=== PATIENT | male | born 1985 | race Caucasian/White ===

== ENCOUNTER 2017-03-08 18:26 | Emergency (ER) | payer SELFPAY ==
[~2017-03-08] VITALS: Ht 165.1 cm; Wt 68.0 kg
[~2017-03-08 18:26] MED LIST: ADDERALL 30 MG30 MG PO; AMOXICILLIN500 M2 PO; CORTISPORIN SUS10 ML OT; FLEXERIL10 MG PO; HUMULIN 70/30 KW3 ML SC; LANTUS100 U/ML SC; MOTRIN800 MG PO; NORCO 5-325 TA1 EACH PO; NOVOLIN R100 U/ML SC; ZOFRAN ODT4 MG SL; Zofran4 MG PO
[2017-03-08] MEDS ORDERED: AMOXICILLIN500 M2 PO (18:48)
== END 2017-03-08 18:46 | disposition home or self-care (01) ==
LOC: ED 18:26
DX: H66.91 Otitis media, unspecified, right ear (principal); R03.0 Elevated blood-pressure reading, without diagnosis of hypertension; F17.210 Nicotine dependence, cigarettes, uncomplicated; F12.10 Cannabis abuse, uncomplicated; F11.10 Opioid abuse, uncomplicated; Z90.89 Acquired absence of other organs

== ENCOUNTER 2017-08-08 17:57 | Emergency (ER) | payer SELFPAY ==
[~2017-08-08] VITALS: Ht 165.1 cm; Wt 68.0 kg
[2017-08-08 18:58] LABS: BASO % 0.2 % (0.0-1.0); HEMATOCRIT 43.4 % (42.0-52.0); HEMOGLOBIN 14.7 g/dl (14.0-18.0); LYMPH # 1.5 10*3/uL (1.3-4.4); LYMPH % 14.6 % (27.0-41.0); MEAN CELL VOLUME 92.7 fl (80.0-94.0); MEAN CORPUSCULAR HGB 31.4 pg (27.0-31.0); MEAN CORPUSCULAR HGB CONC 33.9 g/dl (33.0-37.0); MEAN PLATELET VOLUME 9.8 fl (9.6-12.3); MONO # 0.5 10*3/uL (0.1-1.0); MONO % 4.5 % (3.0-9.0); NEUT # 8.3 10*3/uL (2.3-7.9); NEUT % 80.3 % (47.0-73.0); PLATELET COUNT AUTOMATED 190 10*3/uL (130-400); RED BLOOD COUNT 4.68 10*6/uL (4.50-5.90); RED CELL DISTRI WIDTH 13.1 % (0-14.5); WHITE BLOOD COUNT 10.4 10*3/uL (4.8-10.8)
[2017-08-08 19:16] LABS: ALBUMIN 4.4 gm/dl (3.1-4.5); ALKALINE PHOSPHATASE 111 U/L (45-117); BUN 19 mg/dl (7-24); CHLORIDE 106 mmol/L (98-107); CREATININE 1.02 mg/dL (0.70-1.30); LIPASE 47 U/L (73-393); POTASSIUM 3.9 mmol/L (3.5-5.1); SGOT/AST 81 IU/L (3-35); SGPT/ALT 143 U/L (12-78); SODIUM 139 mmol/L (136-145); TOTAL PROTEIN 9.5 gm/dL (6.4-8.2)
[2017-08-08] MEDS ORDERED: PEPCID40 MG PO (21:00)
[2017-08-08] MEDS ORDERED: ZOFRAN ODT4 MG SL (21:03)
== END 2017-08-08 21:00 | disposition home or self-care (01) ==
LOC: ED 17:57
PROVIDERS: Emergency Medicine
DX: K52.9 Noninfective gastroenteritis and colitis, unspecified (principal); R10.84 Generalized abdominal pain; F17.210 Nicotine dependence, cigarettes, uncomplicated; F12.10 Cannabis abuse, uncomplicated; F11.10 Opioid abuse, uncomplicated; Z90.89 Acquired absence of other organs

== ENCOUNTER 2017-08-13 08:44 | Inpatient (IN) | payer SELFPAY ==
[~2017-08-13] VITALS: Ht 165.1 cm; Wt 63.0 kg
--- NOTE | ~2017-08-13 | O ---
[place], [place] OPERATIVE NOTE NAME: SPENCER MUÑOZ UNIT #: [id number] ROOM: 412 DOCTOR: LEN TREJO,JEIMY BIRTHDATE: [birth year] DOS: 08/14/2017 GASTROENDOSCOPIC REPORT HISTORY OF PRESENT ILLNESS: The patient has presented with nausea and vomiting to the Emergency Room, had to be admitted for persistent emesis. The patient apparently has had multiple days of continuation with emesis. At the time of admission to the Emergency Room his lactic acid was 1.4. CBC: White blood cells 10, H and H 14 and 43, differential within normal limit for emesis. His history is consistent with alcohol and nicotine dependency. His renal status normal. His SGOT/SGPT is 81 and 143, reverse relation for alcoholics. C-reactive protein minimally elevated, lipase 47, normal. Chest x-ray, no focal infiltrate. CT scan of the abdomen and pelvis was noticed. No CT evidence of abnormality within the abdomen and pelvic reported. Lungs are clear. Liver is normal. Gallbladder is within normal limit. Pancreas, spleen, adrenal gland, left kidney demonstrates no pathology of concern. His serum alcohol level was less than 3 as due to the fact that he has stopped for 5 days prior to admission drinking any alcohol. Drug screening was positive for THC and cocaine. PAST MEDICAL HISTORY: Nausea, vomiting recreational drugs and marijuana dependency. PAST SURGICAL HISTORY: T and A and ear tubes. SOCIAL HISTORY: Smoker of nicotine, marijuana, consumer of cocaine at the present time. FAMILY HISTORY: Noncontributory. ALLERGIES: No known medication. PROCEDURE: Today's procedure part of investigation is panendoscopy plus biopsy. PREMEDICATION: Propofol and Versed. Olympus forward-viewing gastroscope Q10 video. REPORT: After putting the patient in left lateral position and application of lubricant to the scope, the scope was introduced. Thereafter, under direct visualization, advanced through the length of esophagus without difficulty. Esophagus cervicothoracic distally within normal limit. No evidence of varicosity. No ulceration noticed. Gastric pouch was entered. Proximal gastric hemorrhagic gastritis was noticed. This is a limited segment and otherwise generalized gastritis and gastric erosion was seen. Antrum noticed. Biopsy from margin of which was obtained for H. pylori. Duodenal bulb, second and third part within normal limits. The patient was gradually extubated and tolerated the procedure well. IMPRESSION: Gastric erosion proximal hemorrhagic gastritis. PLAN AND DISCUSSION: We are going to keep this gentleman on Protonix while [place], [place] OPERATIVE NOTE NAME: SPENCER MUÑOZ UNIT #: [id number] ROOM: [facility] DOCTOR: LEN TREJO,JEIMY BIRTHDATE: [birth year] inpatient, we will take advantage of using sucralfate 2 grams q.i.d. a.c. meals and at bedtime and clinical reassessment. Thank you very much indeed. JEIMY HARRINGTON MD CM:OPRECORD:OPERATIVE NOTE [id number] JEIMY HARRINGTON MD 08/15/17 1127 interface
[~2017-08-13 08:44] MED LIST changes: +PEPCID40 MG PO
[2017-08-13 09:03] LABS: BASO % 0.2 % (0.0-1.0); EOS # 0.1 10*3/uL (0.0-0.4); EOS % 0.9 % (1.0-4.0); HEMATOCRIT 43.6 % (42.0-52.0); HEMOGLOBIN 14.7 g/dl (14.0-18.0); LYMPH % 23.8 % (27.0-41.0); MEAN CELL VOLUME 92.8 fl (80.0-94.0); MEAN CORPUSCULAR HGB 31.3 pg (27.0-31.0); MEAN CORPUSCULAR HGB CONC 33.7 g/dl (33.0-37.0); MEAN PLATELET VOLUME 9.7 fl (9.6-12.3); MONO # 0.7 10*3/uL (0.1-1.0); MONO % 5.9 % (3.0-9.0); NEUT # 8.7 10*3/uL (2.3-7.9); NEUT % 68.9 % (47.0-73.0); PLATELET COUNT AUTOMATED 185 10*3/uL (130-400); WHITE BLOOD COUNT 12.6 10*3/uL (4.8-10.8)
[2017-08-13 09:16] LABS: ACT PARTIAL THROMBO TIME 24.7 SECONDS (20.8-31.5)
[2017-08-13 09:21] LABS: ALBUMIN 4.1 gm/dl (3.1-4.5); ALKALINE PHOSPHATASE 97 U/L (45-117); BUN 12 mg/dl (7-24); CHLORIDE 109 mmol/L (98-107); CREATININE 0.88 mg/dL (0.70-1.30); LIPASE 92 U/L (73-393); POTASSIUM 4.3 mmol/L (3.5-5.1); SGOT/AST 58 IU/L (3-35); SGPT/ALT 133 U/L (12-78); SODIUM 141 mmol/L (136-145); TOTAL PROTEIN 8.8 gm/dL (6.4-8.2)
[2017-08-13 11:45] LABS: BILIRUBIN 1+ (NEGATIVE); BLOOD NEGATIVE (NEGATIVE); CLARITY SL CLOUDY (CLEAR); COLOR YELLOW (YELLOW); GLUCOSE NEGATIVE (NEGATIVE); KETONE NEGATIVE (NEGATIVE); LEUKO ESTERASE NEGATIVE (NEGATIVE); NITRITE NEGATIVE (NEGATIVE)
[2017-08-13 11:55] LABS: EPITHELIAL CELLS 0-2; MUCOUS 1+
[2017-08-13 11:58] LABS: URINE AMPHETAMINES < 1000 (1000ng/ml); URINE BARBITURATES < 200 (200ng/ml); URINE BENZODIAZEPINES < 200 (200ng/ml); URINE CANNABINOIDS (THC) > 50 (50ng/ml); URINE COCAINE > 300 (300ng/ml); URINE METHADONE < 300 (300ng/ml); URINE OPIATES < 300 (300ng/ml); URINE PHENCYCLIDINE < 25 (25ng/ml)
[2017-08-13 13:12] VITALS: BP 158/100
[2017-08-13 16:00] VITALS: BP 174/93
[2017-08-13 20:00] VITALS: BP 169/93; BP 184/88; BP 69/93
[2017-08-13 21:11] VITALS: BP 138/88
[2017-08-14] VITALS (11 sets, daily range): BP systolic 122–170; BP diastolic 68–98
[2017-08-14 07:21] LABS: BASO % 0.3 % (0.0-1.0); EOS # 0.1 10*3/uL (0.0-0.4); EOS % 0.9 % (1.0-4.0); HEMOGLOBIN 13.2 g/dl (14.0-18.0); LYMPH # 2.9 10*3/uL (1.3-4.4); LYMPH % 29.3 % (27.0-41.0); MEAN CELL VOLUME 94.6 fl (80.0-94.0); MEAN CORPUSCULAR HGB 31.2 pg (27.0-31.0); MEAN PLATELET VOLUME 10.2 fl (9.6-12.3); MONO # 0.6 10*3/uL (0.1-1.0); NEUT # 6.3 10*3/uL (2.3-7.9); NEUT % 63.1 % (47.0-73.0); PLATELET COUNT AUTOMATED 164 10*3/uL (130-400); RED BLOOD COUNT 4.23 10*6/uL (4.50-5.90); RED CELL DISTRI WIDTH 12.8 % (0-14.5); WHITE BLOOD COUNT 9.9 10*3/uL (4.8-10.8)
[2017-08-14 07:29] LABS: ALBUMIN 3.4 gm/dl (3.1-4.5); ALKALINE PHOSPHATASE 80 U/L (45-117); BUN 12 mg/dl (7-24); CHLORIDE 107 mmol/L (98-107); CHOLESTEROL 150 mg/dL (<200); CREATININE 0.84 mg/dL (0.70-1.30); HDL CHOLESTEROL 38 mg/dl (40-60); LDL CHOLESTEROL 90 mg/dL (9-159); LIPASE 58 U/L (73-393); PHOSPHOROUS 2.1 mg/dL (2.5-4.9); POTASSIUM 3.9 mmol/L (3.5-5.1); SGOT/AST 46 IU/L (3-35); SGPT/ALT 105 U/L (12-78); SODIUM 141 mmol/L (136-145); TRIGLYCERIDES 109 mg/dl (<150); VLDL CHOLESTEROL 22 mg/dL (6-40)
[2017-08-14 07:35] LABS: FREE T4 1.02 ng/dl (0.76-1.46)
[2017-08-14 08:34] LABS: VITAMIN D, 25-HYDROXY 27.3 ng/mL (30-100)
[2017-08-15] VITALS: BP 121/81
[2017-08-15 08:00] VITALS: BP 121/90
[2017-08-15 08:09] LABS: HEPATITIS B SURFACE AG Negative (Negative)
[2017-08-15] MEDS ORDERED: LISINOPRIL5 MG PO (08:11)
[2017-08-15] MEDS ORDERED: Carafate1 GM/10 ML PO (08:11)
[2017-08-15] MEDS ORDERED: PROTONIX40 MG PO (08:11)
[2017-08-15] MEDS ORDERED: CEPHALEXIN500 M1 PO (10:54)
[2017-08-15 12:00] VITALS: BP 126/88
[2017-08-16 11:47] LABS: HEPATITIS C VIRUS ANTIBODY >11.0 s/co (0.0-0.9)
== END 2017-08-15 13:43 | disposition home or self-care (01) | DRG 391 ==
LOC: ED 08:44 → 4E 12:13 → EDHOLD 12:13 → 4E 12:46
PROVIDERS: Emergency Medicine; Registered Nurse
PROC: 0DB78ZX Excision of Stomach, Pylorus, Via Natural or Artificial Opening Endoscopic, Diagnostic (ICD-10-PCS; principal; 2017-08-14)
DX: K52.9 Noninfective gastroenteritis and colitis, unspecified (principal); K29.01 Acute gastritis with bleeding; E87.8 Other disorders of electrolyte and fluid balance, not elsewhere classified; F12.20 Cannabis dependence, uncomplicated; H66.91 Otitis media, unspecified, right ear; R73.9 Hyperglycemia, unspecified; F14.90 Cocaine use, unspecified, uncomplicated; R74.0 Nonspecific elevation of levels of transaminase and lactic acid dehydrogenase [LDH]; F17.210 Nicotine dependence, cigarettes, uncomplicated; Z82.49 Family history of ischemic heart disease and other diseases of the circulatory system; Z84.89 Family history of other specified conditions; Z80.51 Family history of malignant neoplasm of kidney

== ENCOUNTER → 2017-08-29 | Outpatient (CLI) | payer SELFPAY ==
[~2017-08-29] MED LIST changes: +CEPHALEXIN500 M1 PO; +Carafate1 GM/10 ML PO; +LISINOPRIL5 MG PO; +PROTONIX40 MG PO
== END | disposition home or self-care (01) ==
LOC: RESCLI 07:54
DX: Z09 Encounter for follow-up examination after completed treatment for conditions other than malignant neoplasm (principal); R76.8 Other specified abnormal immunological findings in serum; F19.10 Other psychoactive substance abuse, uncomplicated; I10 Essential (primary) hypertension; K21.9 Gastro-esophageal reflux disease without esophagitis; F17.210 Nicotine dependence, cigarettes, uncomplicated; Z79.899 Other long term (current) drug therapy; Z71.6 Tobacco abuse counseling; Z76.89 Persons encountering health services in other specified circumstances

== ENCOUNTER 2017-08-30 20:34 | Emergency (ER) | payer SELFPAY ==
[~2017-08-30] VITALS: Ht 165.1 cm; Wt 59.0 kg
[2017-08-30 21:56] LABS: URINE AMPHETAMINES < 1000 (1000ng/ml); URINE BARBITURATES < 200 (200ng/ml); URINE BENZODIAZEPINES < 200 (200ng/ml); URINE CANNABINOIDS (THC) > 50 (50ng/ml); URINE COCAINE < 300 (300ng/ml); URINE METHADONE < 300 (300ng/ml); URINE OPIATES < 300 (300ng/ml)
[2017-08-30 21:57] LABS: URINE PHENCYCLIDINE < 25 (25ng/ml)
[2017-08-30 22:15] LABS: BASO % 0.3 % (0.0-1.0); EOS # 0.1 10*3/uL (0.0-0.4); EOS % 0.7 % (1.0-4.0); HEMATOCRIT 39.8 % (42.0-52.0); HEMOGLOBIN 13.4 g/dl (14.0-18.0); LYMPH # 2.4 10*3/uL (1.3-4.4); LYMPH % 21.9 % (27.0-41.0); MEAN CELL VOLUME 93.9 fl (80.0-94.0); MEAN CORPUSCULAR HGB 31.6 pg (27.0-31.0); MEAN CORPUSCULAR HGB CONC 33.7 g/dl (33.0-37.0); MEAN PLATELET VOLUME 9.3 fl (9.6-12.3); MONO # 0.8 10*3/uL (0.1-1.0); MONO % 6.8 % (3.0-9.0); NEUT # 7.8 10*3/uL (2.3-7.9); NEUT % 69.8 % (47.0-73.0); PLATELET COUNT AUTOMATED 169 10*3/uL (130-400); RED BLOOD COUNT 4.24 10*6/uL (4.50-5.90); RED CELL DISTRI WIDTH 12.9 % (0-14.5); WHITE BLOOD COUNT 11.1 10*3/uL (4.8-10.8)
[2017-08-30 22:31] LABS: ALBUMIN 4.3 gm/dl (3.1-4.5); ALKALINE PHOSPHATASE 94 U/L (45-117); BUN 10 mg/dl (7-24); CHLORIDE 104 mmol/L (98-107); POTASSIUM 3.8 mmol/L (3.5-5.1); SGOT/AST 26 IU/L (3-35); SGPT/ALT 55 U/L (12-78); SODIUM 138 mmol/L (136-145); TOTAL PROTEIN 8.5 gm/dL (6.4-8.2)
[2017-08-30 22:37] LABS: TROPONIN I < 0.015 ng/ml (<0.045)
== END 2017-08-30 23:02 | disposition left against medical advice (07) ==
LOC: ED 20:34
PROVIDERS: Emergency Medicine
DX: T50.901A Poisoning by unspecified drugs, medicaments and biological substances, accidental (unintentional), initial encounter (principal); K75.9 Inflammatory liver disease, unspecified; Z79.899 Other long term (current) drug therapy; F12.10 Cannabis abuse, uncomplicated; F11.10 Opioid abuse, uncomplicated; F14.10 Cocaine abuse, uncomplicated; F17.210 Nicotine dependence, cigarettes, uncomplicated; Z98.890 Other specified postprocedural states; Y92.89 Other specified places as the place of occurrence of the external cause

== ENCOUNTER 2018-11-11 11:12 | Emergency (ER) | payer SELFPAY ==
[~2018-11-11] VITALS: Ht 165.1 cm; Wt 68.0 kg
== END 2018-11-11 12:59 | disposition home or self-care (01) ==
LOC: ED 11:12
DX: S63.602A Unspecified sprain of left thumb, initial encounter (principal); F17.210 Nicotine dependence, cigarettes, uncomplicated; Z79.899 Other long term (current) drug therapy; Z79.2 Long term (current) use of antibiotics; X50.0XXA Overexertion from strenuous movement or load, initial encounter; W19.XXXA Unspecified fall, initial encounter; Y93.01 Activity, walking, marching and hiking; Y92.89 Other specified places as the place of occurrence of the external cause; Y99.8 Other external cause status

== ENCOUNTER 2019-03-27 16:58 | Emergency (ER) | payer SELFPAY ==
[~2019-03-27] VITALS: Ht 165.1 cm
[2019-03-27] MEDS ORDERED: AMOXICILLIN500 M2 PO (17:26)
[2019-03-27] MEDS ORDERED: ZYRTEC10 M2 PO (17:26)
== END 2019-03-27 17:32 | disposition home or self-care (01) ==
LOC: ED 16:58
DX: H66.91 Otitis media, unspecified, right ear (principal); J02.9 Acute pharyngitis, unspecified; F17.210 Nicotine dependence, cigarettes, uncomplicated

== ENCOUNTER 2019-04-16 14:58 | Emergency (ER) | payer SELFPAY ==
[~2019-04-16] VITALS: Ht 165.1 cm; Wt 68.0 kg
[~2019-04-16 14:58] MED LIST changes: +ZYRTEC10 M2 PO
[2019-04-16] MEDS ORDERED: CLARITIN-D 121 EACH PO (16:50)
[2019-04-16] MEDS ORDERED: FLONASE ALLERG9.9 ML NAS (16:50)
== END 2019-04-16 17:08 | disposition home or self-care (01) ==
LOC: ED 14:58
DX: H69.81 Other specified disorders of Eustachian tube, right ear (principal); F17.210 Nicotine dependence, cigarettes, uncomplicated

== ENCOUNTER 2019-08-13 16:16 | Emergency (ER) | payer SELFPAY ==
[~2019-08-13] VITALS: Ht 165.1 cm; Wt 68.0 kg
[~2019-08-13 16:16] MED LIST changes: +CLARITIN-D 121 EACH PO; +FLONASE ALLERG9.9 ML NAS
[2019-08-13] MEDS ORDERED: CHANTIX1 M1 PO (17:09)
== END 2019-08-13 17:08 | disposition home or self-care (01) ==
LOC: ED 16:16
DX: S69.91XA Unspecified injury of right wrist, hand and finger(s), initial encounter (principal); F17.210 Nicotine dependence, cigarettes, uncomplicated; X50.1XXA Overexertion from prolonged static or awkward postures, initial encounter; Y93.89 Activity, other specified; Y92.89 Other specified places as the place of occurrence of the external cause; Y99.0 Civilian activity done for income or pay

== ENCOUNTER → 2019-08-27 | Outpatient (CLI) | payer SELFPAY ==
[~2019-08-27] MED LIST changes: +CHANTIX1 M1 PO
== END | disposition home or self-care (01) ==
LOC: RESCLI 00:52
DX: M65.9 Synovitis and tenosynovitis, unspecified (principal); R11.2 Nausea with vomiting, unspecified; K52.9 Noninfective gastroenteritis and colitis, unspecified; H65.91 Unspecified nonsuppurative otitis media, right ear; K21.9 Gastro-esophageal reflux disease without esophagitis; R76.8 Other specified abnormal immunological findings in serum; F19.10 Other psychoactive substance abuse, uncomplicated; I10 Essential (primary) hypertension; H69.80 Other specified disorders of Eustachian tube, unspecified ear; Z98.890 Other specified postprocedural states; Z09 Encounter for follow-up examination after completed treatment for conditions other than malignant neoplasm; Z71.6 Tobacco abuse counseling; Z72.0 Tobacco use; Z76.89 Persons encountering health services in other specified circumstances; Z79.899 Other long term (current) drug therapy

== ENCOUNTER → 2019-09-09 | Outpatient (CLI) | payer SELFPAY ==
[2019-09-09 15:46] LABS: BASO % 0.4 % (0.0-1.0); EOS # 0.1 10*3/uL (0.0-0.4); EOS % 1.7 % (1.0-4.0); HEMATOCRIT 42.3 % (42.0-52.0); LYMPH # 3.5 10*3/uL (1.3-4.4); LYMPH % 42.8 % (27.0-41.0); MEAN CELL VOLUME 92.8 fl (80.0-94.0); MEAN CORPUSCULAR HGB 31.8 pg (27.0-31.0); MEAN CORPUSCULAR HGB CONC 34.3 g/dl (33.0-37.0); MEAN PLATELET VOLUME 9.9 fl (9.6-12.3); MONO # 0.6 10*3/uL (0.1-1.0); MONO % 6.8 % (3.0-9.0); NEUT # 3.9 10*3/uL (2.3-7.9); NEUT % 48.2 % (47.0-73.0); PLATELET COUNT AUTOMATED 173 10*3/uL (130-400); RED BLOOD COUNT 4.56 10*6/uL (4.50-5.90); WHITE BLOOD COUNT 8.1 10*3/uL (4.8-10.8)
[2019-09-09 16:01] LABS: ALBUMIN 3.9 gm/dl (3.1-4.5); ALKALINE PHOSPHATASE 80 U/L (45-117); BUN 8 mg/dl (7-24); CHLORIDE 104 mmol/L (98-107); HDL CHOLESTEROL 54 mg/dl (40-60); POTASSIUM 3.6 mmol/L (3.5-5.1); SODIUM 134 mmol/L (136-145)
[2019-09-09 16:02] LABS: CHOLESTEROL 175 mg/dL (<200); CREATININE 0.95 mg/dL (0.70-1.30); LDL CHOLESTEROL 81 mg/dL (9-159); SGOT/AST 13 IU/L (3-35); SGPT/ALT 24 U/L (12-78); TRIGLYCERIDES 200 mg/dl (<150); VLDL CHOLESTEROL 40 mg/dL (6-40)
[2019-09-09 16:19] LABS: VITAMIN D, 25-HYDROXY 26.8 ng/mL (30-100)
== END | disposition home or self-care (01) ==
LOC: LAB 15:15
PROVIDERS: Student in an Organized Health Care Education/Training Program
DX: I10 Essential (primary) hypertension (principal)

== ENCOUNTER → 2019-09-30 | Outpatient (CLI) | payer OTHER | END | disposition home or self-care (01) | LOC: RESCLI 01:07 | DX: K21.9 Gastro-esophageal reflux disease without esophagitis (principal); I10 Essential (primary) hypertension; E55.9 Vitamin D deficiency, unspecified; E53.8 Deficiency of other specified B group vitamins; H69.80 Other specified disorders of Eustachian tube, unspecified ear; Z79.899 Other long term (current) drug therapy ==

== ENCOUNTER 2019-10-30 13:06 | Emergency (ER) | payer OTHER ==
[~2019-10-30] VITALS: Wt 61.2 kg
[2019-10-30] MEDS ORDERED: AUGMENTIN 875875 MG PO (14:45)
[2019-10-30] MEDS ORDERED: OFLOXACIN OTIC5 ML OPH (14:45)
== END 2019-10-30 15:04 | disposition home or self-care (01) ==
LOC: ED 13:06
DX: H60.91 Unspecified otitis externa, right ear (principal); H66.91 Otitis media, unspecified, right ear; F17.200 Nicotine dependence, unspecified, uncomplicated; Z79.899 Other long term (current) drug therapy

== ENCOUNTER → 2019-11-25 | Outpatient (CLI) | payer OTHER ==
[~2019-11-25] MED LIST changes: +AUGMENTIN 875875 MG PO; +OFLOXACIN OTIC5 ML OPH
== END | disposition home or self-care (01) ==
LOC: RESCLI 04:02
PROVIDERS: ATTEND Student in an Organized Health Care Education/Training Program
DX: E55.9 Vitamin D deficiency, unspecified (principal); K21.9 Gastro-esophageal reflux disease without esophagitis; H69.80 Other specified disorders of Eustachian tube, unspecified ear; E53.8 Deficiency of other specified B group vitamins; I10 Essential (primary) hypertension; Z90.89 Acquired absence of other organs; Z71.6 Tobacco abuse counseling; Z79.899 Other long term (current) drug therapy; Z98.890 Other specified postprocedural states

== ENCOUNTER → 2019-11-26 | Outpatient (CLI) | payer OTHER | END | disposition home or self-care (01) | LOC: RAD 16:37 | PROVIDERS: ATTEND Family Medicine | DX: M77.11 Lateral epicondylitis, right elbow (principal) ==

== ENCOUNTER 2020-04-17 14:37 | Emergency (ER) | payer OTHER ==
[~2020-04-17] VITALS: Ht 165.1 cm; Wt 68.0 kg
[2020-04-17] MEDS ORDERED: SEPTDS PO ×2 (15:39)
[2020-04-17] MEDS ORDERED: SILVADENE,SSD C50 GM T ×2 (15:39)
== END 2020-04-17 15:45 | disposition home or self-care (01) ==
LOC: ED 14:37
DX: T20.07XA Burn of unspecified degree of neck, initial encounter (principal); F17.200 Nicotine dependence, unspecified, uncomplicated; Z98.890 Other specified postprocedural states; X08.8XXA Exposure to other specified smoke, fire and flames, initial encounter; Y93.89 Activity, other specified; Y92.89 Other specified places as the place of occurrence of the external cause; Y99.8 Other external cause status

== ENCOUNTER 2020-04-24 01:45 | Emergency (ER) | payer OTHER ==
[~2020-04-24] VITALS: Wt 68.0 kg
[~2020-04-24 01:45] MED LIST changes: +SEPTDS PO; +SILVADENE,SSD C50 GM T
[2020-04-24] MEDS ORDERED: PREDNISONE20 M1 PO (02:19)
== END 2020-04-24 02:59 | disposition home or self-care (01) ==
LOC: ED 01:45
DX: L50.9 Urticaria, unspecified (principal); Z79.899 Other long term (current) drug therapy; Z79.2 Long term (current) use of antibiotics; Z90.89 Acquired absence of other organs; Z96.22 Myringotomy tube(s) status

== ENCOUNTER 2020-05-04 07:55 | Emergency (ER) | payer OTHER ==
[~2020-05-04] VITALS: Wt 68.0 kg
[~2020-05-04 07:55] MED LIST changes: +PREDNISONE20 M1 PO
[2020-05-04] MEDS ORDERED: POLYSPORIN OINT15 GM T (09:02)
== END 2020-05-04 09:24 | disposition home or self-care (01) ==
LOC: ED 07:55
DX: L28.1 Prurigo nodularis (principal); F17.210 Nicotine dependence, cigarettes, uncomplicated; L98.499 Non-pressure chronic ulcer of skin of other sites with unspecified severity; Z79.899 Other long term (current) drug therapy; Z90.89 Acquired absence of other organs; Z96.22 Myringotomy tube(s) status; Z98.890 Other specified postprocedural states

== ENCOUNTER 2020-06-22 08:36 | Emergency (ER) | payer OTHER ==
[~2020-06-22] VITALS: Ht 165.1 cm; Wt 68.0 kg
[~2020-06-22 08:36] MED LIST changes: +POLYSPORIN OINT15 GM T
[2020-06-22 09:09] LABS: BASO % 0.2 % (0.0-1.0); EOS # 0.2 10*3/uL (0.0-0.4); EOS % 1.4 % (1.0-4.0); HEMATOCRIT 34.8 % (42.0-52.0); LYMPH # 3.5 10*3/uL (1.3-4.4); LYMPH % 32.6 % (27.0-41.0); MEAN CELL VOLUME 88.5 fl (80.0-94.0); MEAN CORPUSCULAR HGB 30.3 pg (27.0-31.0); MEAN CORPUSCULAR HGB CONC 34.2 g/dl (33.0-37.0); MEAN PLATELET VOLUME 8.7 fl (9.6-12.3); NEUT # 6.1 10*3/uL (2.3-7.9); NEUT % 56.6 % (47.0-73.0); PLATELET COUNT AUTOMATED 261 10*3/uL (130-400); RED BLOOD COUNT 3.93 10*6/uL (4.50-5.90); RED CELL DISTRI WIDTH 12.6 % (0-14.5); WHITE BLOOD COUNT 10.7 10*3/uL (4.8-10.8)
[2020-06-22 09:24] LABS: ALBUMIN 3.6 gm/dl (3.1-4.5); ALKALINE PHOSPHATASE 95 U/L (45-117); BUN 7 mg/dl (7-24); CHLORIDE 100 mmol/L (98-107); CREATININE 0.86 mg/dL (0.70-1.30); POTASSIUM 3.7 mmol/L (3.5-5.1); SGOT/AST 16 IU/L (3-35); SGPT/ALT 22 U/L (12-78); SODIUM 134 mmol/L (136-145); TOTAL PROTEIN 8.3 gm/dL (6.4-8.2)
[2020-06-22 09:27] LABS: ETHYL ALCOHOL < 3.0 mg/dl (<3)
[2020-06-22 09:32] LABS: THYROID STIM HORMONE (HS) 0.774 uIU/ml (0.358-4.75)
[2020-06-22 12:07] LABS: BILIRUBIN Negative (Negative); BLOOD Negative (Negative); CLARITY Cloudy (Clear); COLOR Yellow (Yellow); GLUCOSE Negative (Negative); KETONE Trace (Negative); LEUKO ESTERASE Trace (Negative); NITRITE Negative (Negative); PH 6.5 (4.5-8.0); SPECIFIC GRAVITY 1.015 (1.001-1.030)
[2020-06-22 12:17] LABS: URINE AMPHETAMINES > 1000 (1000ng/ml); URINE BARBITURATES < 200 (200ng/ml); URINE BENZODIAZEPINES < 200 (200ng/ml); URINE CANNABINOIDS (THC) > 50 (50ng/ml); URINE COCAINE < 300 (300ng/ml); URINE METHADONE < 300 (300ng/ml); URINE OPIATES < 300 (300ng/ml)
[2020-06-22 12:18] LABS: URINE PHENCYCLIDINE < 25 (25ng/ml)
[2020-06-22 12:40] LABS: BACTERIA 2+
[2020-06-22] MEDS ORDERED: SEPTDS PO (12:50)
== END 2020-06-22 12:57 | disposition home or self-care (01) ==
LOC: ED 08:36
PROVIDERS: Emergency Medicine
DX: F15.10 Other stimulant abuse, uncomplicated (principal); L02.91 Cutaneous abscess, unspecified; Z79.899 Other long term (current) drug therapy; Z98.890 Other specified postprocedural states

== ENCOUNTER 2021-05-30 22:42 | Emergency (ER) | payer OTHER ==
[~2021-05-30] VITALS: Ht 165.1 cm; Wt 61.2 kg
[2021-05-30] MEDS ORDERED: AUGMENTIN 875-875 MG PO (23:20)
[2021-05-30] MEDS ORDERED: TYLENOL325 M1 PO (23:20)
[2021-05-30] MEDS ORDERED: PREDNISONE20 M1 PO (23:20)
== END 2021-05-30 23:48 | disposition home or self-care (01) ==
LOC: ED 22:42
DX: J32.8 Other chronic sinusitis (principal); H92.03 Otalgia, bilateral; Z90.89 Acquired absence of other organs; Z98.890 Other specified postprocedural states; Z87.891 Personal history of nicotine dependence

== ENCOUNTER 2021-07-19 20:12 | Emergency (ER) | payer OTHER ==
[~2021-07-19] VITALS: Ht 165.1 cm; Wt 68.0 kg
[~2021-07-19 20:12] MED LIST changes: +AUGMENTIN 875-875 MG PO; +TYLENOL325 M1 PO
[2021-07-19] MEDS ORDERED: NAPROXEN250 MG PO (21:25)
== END 2021-07-19 21:36 | disposition home or self-care (01) ==
LOC: ED 20:12
DX: M25.532 Pain in left wrist (principal); M79.642 Pain in left hand; Z90.89 Acquired absence of other organs; Z87.891 Personal history of nicotine dependence

== ENCOUNTER 2021-11-20 04:45 | Emergency (ER) | payer OTHER ==
[~2021-11-20 04:45] MED LIST changes: +NAPROXEN250 MG PO
[2021-11-20 05:33] LABS: ALKALINE PHOSPHATASE 73 U/L (45-117); BUN 12 mg/dl (7-24); CHLORIDE 107 mmol/L (98-107); CREATININE 0.85 mg/dL (0.70-1.30); POTASSIUM 3.6 mmol/L (3.5-5.1); SGOT/AST 17 IU/L (3-35); SGPT/ALT 23 U/L (12-78); SODIUM 136 mmol/L (136-145); TOTAL PROTEIN 8.1 gm/dL (6.4-8.2)
[2021-11-20 06:03] LABS: BASO % 0.3 % (0.0-1.0); EOS # 0.1 10*3/uL (0.0-0.4); EOS % 1.1 % (1.0-4.0); HEMATOCRIT 42.3 % (42.0-52.0); LYMPH # 2.4 10*3/uL (1.3-4.4); LYMPH % 32.7 % (27.0-41.0); MEAN CELL VOLUME 92.4 fl (80.0-94.0); MEAN CORPUSCULAR HGB 32.3 pg (27.0-31.0); MEAN PLATELET VOLUME 9.9 fl (9.6-12.3); MONO # 0.5 10*3/uL (0.1-1.0); MONO % 7.2 % (3.0-9.0); NEUT # 4.3 10*3/uL (2.3-7.9); NEUT % 57.5 % (47.0-73.0); PLATELET COUNT AUTOMATED 187 10*3/uL (130-400); RED BLOOD COUNT 4.58 10*6/uL (4.50-5.90); RED CELL DISTRI WIDTH 13.1 % (0-14.5); WHITE BLOOD COUNT 7.5 10*3/uL (4.8-10.8)
[2021-11-20] MEDS ORDERED: NARCAN4 MG NAS (06:16)
== END 2021-11-20 06:47 | disposition home or self-care (01) ==
LOC: ED 04:45
PROVIDERS: Family Medicine
DX: F12.90 Cannabis use, unspecified, uncomplicated (principal); Z90.89 Acquired absence of other organs; F17.200 Nicotine dependence, unspecified, uncomplicated

== ENCOUNTER → 2022-02-19 | Outpatient (CLI) | payer OTHER ==
[~2022-02-19] MED LIST changes: +NARCAN4 MG NAS
[2022-02-19 14:36] LABS: BASO % 0.3 % (0.0-1.0); EOS # 0.2 10*3/uL (0.0-0.4); EOS % 2.2 % (1.0-4.0); HEMATOCRIT 41.3 % (42.0-52.0); LYMPH # 2.7 10*3/uL (1.3-4.4); LYMPH % 38.4 % (27.0-41.0); MEAN CELL VOLUME 90.4 fl (80.0-94.0); MEAN CORPUSCULAR HGB 31.5 pg (27.0-31.0); MEAN CORPUSCULAR HGB CONC 34.9 g/dl (33.0-37.0); MEAN PLATELET VOLUME 9.4 fl (9.6-12.3); MONO # 0.5 10*3/uL (0.1-1.0); MONO % 6.5 % (3.0-9.0); NEUT # 3.6 10*3/uL (2.3-7.9); NEUT % 52.3 % (47.0-73.0); PLATELET COUNT AUTOMATED 170 10*3/uL (130-400); RED BLOOD COUNT 4.57 10*6/uL (4.50-5.90); RED CELL DISTRI WIDTH 12.4 % (0-14.5); WHITE BLOOD COUNT 6.9 10*3/uL (4.8-10.8)
[2022-02-19 14:53] LABS: ALKALINE PHOSPHATASE 68 U/L (46-116); BUN 12 mg/dl (9-23); CHLORIDE 102 mmol/L (98-107); CREATININE 0.92 mg/dL (0.70-1.30); POTASSIUM 4.3 mmol/L (3.4-5.1); SGPT/ALT 10 U/L (10-49); THYROID STIM HORMONE (HS) 1.146 uIU/ml (0.550-4.780)
[2022-02-21 13:06] LABS: HIV-1 RNA BY PCR <20 (.)
== END | disposition home or self-care (01) ==
LOC: LAB 14:08
PROVIDERS: ATTEND Student in an Organized Health Care Education/Training Program
DX: R53.83 Other fatigue (principal)

== ENCOUNTER → 2022-03-28 | Outpatient (CLI) | payer OTHER ==
[2022-03-28 13:29] LABS: ALKALINE PHOSPHATASE 72 U/L (46-116); BUN 8 mg/dl (9-23); CHLORIDE 103 mmol/L (98-107); POTASSIUM 4.4 mmol/L (3.4-5.1); SGPT/ALT 15 U/L (10-49); TOTAL PROTEIN 7.8 gm/dL (6.0-8.0)
[2022-03-29 07:07] LABS: HEPATITIS A AB, TOTAL Negative (Negative); HEPATITIS B SURFACE AB Reactive (.); HEPATITIS B SURFACE AG Negative (Negative)
[2022-03-29 20:07] LABS: HEPATITIS C QNT HCV Not Detected IU/mL (.)
== END | disposition home or self-care (01) ==
LOC: LAB 12:11
PROVIDERS: ATTEND Nurse Practitioner Family
DX: B19.20 Unspecified viral hepatitis C without hepatic coma (principal)

== ENCOUNTER 2022-05-15 13:53 | Emergency (ER) | payer OTHER ==
[~2022-05-15] VITALS: Ht 165.1 cm; Wt 63.5 kg
[2022-05-15] MEDS ORDERED: VALTREX1000 MG PO (15:29)
[2022-05-15] MEDS ORDERED: PERCOCET 5-3251 EACH PO (15:29)
== END 2022-05-15 15:47 | disposition home or self-care (01) ==
LOC: ED 13:53
DX: B02.9 Zoster without complications (principal); M54.2 Cervicalgia; Z90.89 Acquired absence of other organs; Z98.890 Other specified postprocedural states; F17.210 Nicotine dependence, cigarettes, uncomplicated; F14.90 Cocaine use, unspecified, uncomplicated

== ENCOUNTER 2022-05-21 12:04 | Emergency (ER) | payer OTHER ==
[~2022-05-21] VITALS: Ht 165.1 cm; Wt 63.5 kg
[~2022-05-21 12:04] MED LIST changes: +PERCOCET 5-3251 EACH PO; +VALTREX1000 MG PO
[2022-05-21] MEDS ORDERED: CEPHALEXIN500 M1 PO (12:39)
[2022-05-21] MEDS ORDERED: NEURONTIN300 MG PO (12:43)
== END 2022-05-21 12:55 | disposition home or self-care (01) ==
LOC: ED 12:04
DX: L08.9 Local infection of the skin and subcutaneous tissue, unspecified (principal); Z90.89 Acquired absence of other organs; Z98.890 Other specified postprocedural states; F14.90 Cocaine use, unspecified, uncomplicated; F17.210 Nicotine dependence, cigarettes, uncomplicated

== ENCOUNTER 2022-08-24 12:18 | Emergency (ER) | payer OTHER ==
[~2022-08-24] VITALS: Wt 54.4 kg
[~2022-08-24 12:18] MED LIST changes: +NEURONTIN300 MG PO
[2022-08-24] MEDS ORDERED: ZITHROMAX250 MG PO (12:41)
[2022-08-24] MEDS ORDERED: MEDROL DOSEPAK4 MG PO (12:41)
[2022-08-24] MEDS ORDERED: NAPROSYN500 MG PO (12:41)
== END 2022-08-24 12:47 | disposition home or self-care (01) ==
LOC: ED 12:18
DX: H66.41 Suppurative otitis media, unspecified, right ear (principal); F17.210 Nicotine dependence, cigarettes, uncomplicated; Z79.2 Long term (current) use of antibiotics; Z79.899 Other long term (current) drug therapy; Z90.89 Acquired absence of other organs; Z96.22 Myringotomy tube(s) status

== ENCOUNTER 2022-10-26 08:56 | Emergency (ER) | payer OTHER ==
[~2022-10-26] VITALS: Ht 165.1 cm; Wt 59.0 kg
[~2022-10-26 08:56] MED LIST changes: +MEDROL DOSEPAK4 MG PO; +NAPROSYN500 MG PO; +ZITHROMAX250 MG PO
[2022-10-26 10:12] LABS: BASO % 0.4 % (0.0-1.0); EOS # 0.2 10*3/uL (0.0-0.4); EOS % 2.4 % (1.0-4.0); HEMATOCRIT 36.8 % (42.0-52.0); LYMPH # 2.5 10*3/uL (1.3-4.4); LYMPH % 27.4 % (27.0-41.0); MEAN CELL VOLUME 90.6 fl (80.0-94.0); MEAN CORPUSCULAR HGB 31.3 pg (27.0-31.0); MEAN CORPUSCULAR HGB CONC 34.5 g/dl (33.0-37.0); MEAN PLATELET VOLUME 8.9 fl (9.6-12.3); MONO # 0.6 10*3/uL (0.1-1.0); MONO % 6.9 % (3.0-9.0); NEUT # 5.6 10*3/uL (2.3-7.9); NEUT % 62.6 % (47.0-73.0); PLATELET COUNT AUTOMATED 195 10*3/uL (130-400); RED BLOOD COUNT 4.06 10*6/uL (4.50-5.90); RED CELL DISTRI WIDTH 12.6 % (0-14.5); WHITE BLOOD COUNT 8.9 10*3/uL (4.8-10.8)
[2022-10-26 10:38] LABS: ALKALINE PHOSPHATASE 94 U/L (46-116); BUN 9 mg/dl (9-23); CHLORIDE 108 mmol/L (98-107); POTASSIUM 4.5 mmol/L (3.4-5.1); SGPT/ALT 20 U/L (10-49); TOTAL PROTEIN 7.2 gm/dL (6.0-8.0)
[2022-10-26] MEDS ORDERED: LEVOFLOXACIN750 M2 PO (11:20)
[2022-10-26] MEDS ORDERED: PREDNISONE50 MG PO (11:20)
== END 2022-10-26 11:31 | disposition home or self-care (01) ==
LOC: ED 08:56
PROVIDERS: Emergency Medicine
DX: J32.9 Chronic sinusitis, unspecified (principal); J20.9 Acute bronchitis, unspecified; H92.01 Otalgia, right ear; F17.210 Nicotine dependence, cigarettes, uncomplicated; Z79.899 Other long term (current) drug therapy; Z79.2 Long term (current) use of antibiotics; Z90.89 Acquired absence of other organs

== ENCOUNTER 2023-01-11 10:44 | Emergency (ER) | payer OTHER ==
[~2023-01-11] VITALS: Ht 165.1 cm; Wt 68.0 kg
[~2023-01-11 10:44] MED LIST changes: +LEVOFLOXACIN750 M2 PO; +PREDNISONE50 MG PO
[2023-01-11] MEDS ORDERED: VENLAFAXINE HY150 M2 PO (11:05)
[2023-01-11] MEDS ORDERED: ATOMOXETINE HCL80 MG PO (11:05)
[2023-01-11] MEDS ORDERED: OMEPRAZOLE10 MG PO (11:06)
[2023-01-11] MEDS ORDERED: BANOPHEN25 MG PO (11:06)
[2023-01-11] MEDS ORDERED: NAPROSYN500 MG PO (11:30)
[2023-01-11] MEDS ORDERED: KENALOG 0.1% OI15 GM T (11:30)
== END 2023-01-11 11:51 | disposition home or self-care (01) ==
LOC: ED 10:44
DX: H66.91 Otitis media, unspecified, right ear (principal); L25.9 Unspecified contact dermatitis, unspecified cause; Z90.89 Acquired absence of other organs; Z98.890 Other specified postprocedural states; F14.90 Cocaine use, unspecified, uncomplicated; Z72.0 Tobacco use

== ENCOUNTER 2023-03-12 12:24 | Emergency (ER) | payer OTHER ==
[~2023-03-12] VITALS: Ht 165.1 cm; Wt 68.0 kg
[~2023-03-12 12:24] MED LIST changes: +ATOMOXETINE HCL80 MG PO; +BANOPHEN25 MG PO; +KENALOG 0.1% OI15 GM T; +OMEPRAZOLE10 MG PO; +VENLAFAXINE HY150 M2 PO
[2023-03-12] MEDS ORDERED: REXULTI1 MG PO (12:54)
[2023-03-12] MEDS ORDERED: PREDNISONE50 MG PO (15:39)
== END 2023-03-12 15:43 | disposition home or self-care (01) ==
LOC: ED 12:24
DX: R21 Rash and other nonspecific skin eruption (principal); Z90.89 Acquired absence of other organs; Z98.890 Other specified postprocedural states; F17.210 Nicotine dependence, cigarettes, uncomplicated; F14.90 Cocaine use, unspecified, uncomplicated; Z20.822 Contact with and (suspected) exposure to COVID-19

== ENCOUNTER → 2023-04-08 | Outpatient (CLI) | payer OTHER ==
[~2023-04-08] MED LIST changes: +REXULTI1 MG PO
[2023-04-08 14:38] LABS: BASO % 0.5 % (0.0-1.0); EOS # 0.2 10*3/uL (0.0-0.4); EOS % 2.3 % (1.0-4.0); HEMATOCRIT 41.7 % (42.0-52.0); LYMPH # 2.7 10*3/uL (1.3-4.4); LYMPH % 40.2 % (27.0-41.0); MEAN CELL VOLUME 91.9 fl (80.0-94.0); MEAN CORPUSCULAR HGB CONC 32.6 g/dl (33.0-37.0); MEAN PLATELET VOLUME 9.1 fl (9.6-12.3); MONO # 0.5 10*3/uL (0.1-1.0); MONO % 7.1 % (3.0-9.0); NEUT # 3.3 10*3/uL (2.3-7.9); NEUT % 49.7 % (47.0-73.0); PLATELET COUNT AUTOMATED 208 10*3/uL (130-400); RED BLOOD COUNT 4.54 10*6/uL (4.50-5.90); RED CELL DISTRI WIDTH 12.9 % (0-14.5); WHITE BLOOD COUNT 6.6 10*3/uL (4.8-10.8)
[2023-04-08 15:05] LABS: ALKALINE PHOSPHATASE 110 U/L (46-116); BUN 8 mg/dl (9-23); CHLORIDE 103 mmol/L (98-107); CHOLESTEROL 176 mg/dL (<200); FREE T4 0.81 ng/dl (0.89-1.76); LDL CHOLESTEROL 103 mg/dL (9-159); POTASSIUM 4.3 mmol/L (3.4-5.1); SGPT/ALT 12 U/L (5-49); TOTAL PROTEIN 7.8 gm/dL (6.0-8.0); TRIGLYCERIDES 121 mg/dl (<150)
[2023-04-08 15:06] LABS: VITAMIN D, 25-HYDROXY 27.6 ng/mL (30-100)
== END | disposition home or self-care (01) ==
LOC: LAB 14:20
PROVIDERS: ATTEND Nurse Practitioner Psychiatric/Mental Health
DX: Z51.81 Encounter for therapeutic drug level monitoring (principal); Z79.899 Other long term (current) drug therapy

== ENCOUNTER → 2023-05-24 | Outpatient (CLI) | payer OTHER ==
[2023-05-24 11:56] LABS: ALKALINE PHOSPHATASE 79 U/L (46-116); BUN 15 mg/dl (9-23); CHLORIDE 106 mmol/L (98-107); CHOLESTEROL 168 mg/dL (<200); LDL CHOLESTEROL 97 mg/dL (9-159); POTASSIUM 3.8 mmol/L (3.4-5.1); SGPT/ALT 19 U/L (5-49); TOTAL PROTEIN 7.8 gm/dL (6.0-8.0); TRIGLYCERIDES 115 mg/dl (<150)
== END | disposition home or self-care (01) ==
LOC: LAB 11:06
PROVIDERS: ATTEND Nurse Practitioner Family
DX: K21.9 Gastro-esophageal reflux disease without esophagitis (principal)

== ENCOUNTER → 2023-06-15 | Outpatient (CLI) | payer OTHER ==
[2023-06-15 10:55] LABS: FREE T4 0.83 ng/dl (0.89-1.76)
[2023-06-15 11:08] LABS: VITAMIN D, 25-HYDROXY 25.2 ng/mL (30-100)
[2023-06-16 12:06] LABS: HBSAG Negative (Negative); HEP B CORE AB, IGM Negative (Negative)
== END | disposition home or self-care (01) ==
LOC: LAB 09:58
PROVIDERS: ATTEND Family Medicine
DX: R06.02 Shortness of breath (principal); E55.9 Vitamin D deficiency, unspecified; M25.59 Pain in other specified joint; M79.10 Myalgia, unspecified site; R53.83 Other fatigue; Z72.51 High risk heterosexual behavior; Z72.0 Tobacco use; L65.9 Nonscarring hair loss, unspecified

== ENCOUNTER → 2023-07-02 | Outpatient (CLI) | payer OTHER ==
[2023-07-03 19:06] LABS: HEPATITIS C QNT HCV Not Detected IU/mL (.)
== END | disposition home or self-care (01) ==
LOC: LAB 09:54
PROVIDERS: ATTEND Family Medicine
DX: B19.20 Unspecified viral hepatitis C without hepatic coma (principal)

== ENCOUNTER 2023-07-11 11:02 | Emergency (ER) | payer OTHER ==
[~2023-07-11] VITALS: Wt 68.0 kg
== END 2023-07-11 11:58 | disposition left against medical advice (07) ==
LOC: ED 11:02
DX: S01.01XA Laceration without foreign body of scalp, initial encounter (principal); Z53.29 Procedure and treatment not carried out because of patient's decision for other reasons; F14.90 Cocaine use, unspecified, uncomplicated; Z72.0 Tobacco use; Z90.89 Acquired absence of other organs; Z98.890 Other specified postprocedural states; W10.9XXA Fall (on) (from) unspecified stairs and steps, initial encounter; Y93.01 Activity, walking, marching and hiking; Y92.512 Supermarket, store or market as the place of occurrence of the external cause; Y99.8 Other external cause status

== ENCOUNTER → 2023-11-18 | Outpatient (CLI) | payer OTHER ==
[2023-11-18 12:28] LABS: HEMATOCRIT 42.2 % (42.0-52.0); MEAN CELL VOLUME 92.3 fl (80.0-94.0); MEAN CORPUSCULAR HGB 31.1 pg (27.0-31.0); MEAN CORPUSCULAR HGB CONC 33.6 g/dl (33.0-37.0); MEAN PLATELET VOLUME 9.1 fl (9.6-12.3); RED BLOOD COUNT 4.57 10*6/uL (4.50-5.90); RED CELL DISTRI WIDTH 13.1 % (0-14.5); WHITE BLOOD COUNT 8.8 10*3/uL (4.8-10.8)
[2023-11-18 13:55] LABS: ALKALINE PHOSPHATASE 103 U/L (46-116); BUN 9 mg/dl (9-23); CHLORIDE 102 mmol/L (98-107); CHOLESTEROL 213 mg/dL (<200); FREE T4 0.86 ng/dl (0.89-1.76); LDL CHOLESTEROL 129 mg/dL (9-159); POTASSIUM 4.6 mmol/L (3.4-5.1); SGPT/ALT 10 U/L (5-49); TOTAL PROTEIN 8.3 gm/dL (6.0-8.0); TRIGLYCERIDES 165 mg/dl (<150)
== END | disposition home or self-care (01) ==
LOC: LAB 12:09
PROVIDERS: ATTEND Family Medicine
DX: E03.9 Hypothyroidism, unspecified (principal); K21.9 Gastro-esophageal reflux disease without esophagitis

== ENCOUNTER → 2024-02-10 | Outpatient (CLI) | payer OTHER ==
[2024-02-10 10:37] LABS: FREE T4 1.24 ng/dl (0.89-1.76)
== END | disposition home or self-care (01) ==
LOC: LAB 09:22
PROVIDERS: ATTEND Family Medicine
DX: E03.9 Hypothyroidism, unspecified (principal)

== ENCOUNTER 2024-05-12 12:05 | Emergency (ER) | payer OTHER ==
[~2024-05-12] VITALS: Ht 165.1 cm; Wt 68.0 kg
[2024-05-12] MEDS ORDERED: LEVOTHYROXINE75 MCG PO (12:14)
[2024-05-12 13:08] LABS: BASO % 0.3 % (0.0-1.0); EOS # 0.2 10*3/uL (0.0-0.4); HEMATOCRIT 43.2 % (42.0-52.0); MEAN CELL VOLUME 91.9 fl (80.0-94.0); MEAN CORPUSCULAR HGB 30.2 pg (27.0-31.0); MEAN CORPUSCULAR HGB CONC 32.9 g/dl (33.0-37.0); MONO # 0.6 10*3/uL (0.1-1.0); MONO % 8.6 % (3.0-9.0); NEUT # 4.4 10*3/uL (2.3-7.9); NEUT % 63.2 % (47.0-73.0); PLATELET COUNT AUTOMATED 173 10*3/uL (130-400); RED CELL DISTRI WIDTH 13.2 % (0-14.5)
[2024-05-12 13:27] LABS: BILIRUBIN Negative (Negative); BLOOD Negative (Negative); CLARITY Clear (Clear); COLOR Yellow (Yellow); GLUCOSE Negative (Negative); KETONE Trace (Negative); LEUKO ESTERASE 1+ (Negative); NITRITE Negative (Negative); PH 6.5 (4.5-8.0)
[2024-05-12 13:34] LABS: ALKALINE PHOSPHATASE 115 U/L (46-116); BUN 6 mg/dl (9-23); CHLORIDE 102 mmol/L (98-107); CPK 84 U/L (34-171); ETHYL ALCOHOL 3.1 mg/dl (<3); POTASSIUM 4.8 mmol/L (3.4-5.1); SGPT/ALT 15 U/L (5-49)
[2024-05-12 13:36] LABS: MUCOUS 3+
[2024-05-12 13:37] LABS: EPITHELIAL CELLS 0-2; HYALINE CAST 0-2
[2024-05-12 13:38] LABS: URINE AMPHETAMINES Positive (1000ng/ml); URINE BARBITURATES Negative (200ng/ml); URINE BENZODIAZEPINES Negative (200ng/ml); URINE CANNABINOIDS (THC) Positive (50ng/ml); URINE COCAINE Positive (300ng/ml); URINE METHADONE Negative (300ng/ml); URINE OPIATES Negative (300ng/ml); URINE PHENCYCLIDINE Negative (25ng/ml)
== END 2024-05-12 16:11 | disposition home or self-care (01) ==
LOC: ED 12:05
PROVIDERS: Nurse Practitioner Family
DX: F43.21 Adjustment disorder with depressed mood (principal); E78.00 Pure hypercholesterolemia, unspecified; F12.90 Cannabis use, unspecified, uncomplicated; F15.10 Other stimulant abuse, uncomplicated; F14.90 Cocaine use, unspecified, uncomplicated; F17.210 Nicotine dependence, cigarettes, uncomplicated; Z79.899 Other long term (current) drug therapy; Z90.89 Acquired absence of other organs; Z98.890 Other specified postprocedural states

== ENCOUNTER → 2024-06-01 | Outpatient (CLI) | payer OTHER ==
[~2024-06-01] MED LIST changes: +LEVOTHYROXINE75 MCG PO
[2024-06-01 13:46] LABS: MEAN CELL VOLUME 91.8 fl (80.0-94.0); MEAN CORPUSCULAR HGB 30.2 pg (27.0-31.0); MEAN CORPUSCULAR HGB CONC 32.9 g/dl (33.0-37.0); MEAN PLATELET VOLUME 8.9 fl (9.6-12.3); RED BLOOD COUNT 4.9 10*6/uL (4.50-5.90); RED CELL DISTRI WIDTH 13.1 % (0-14.5); WHITE BLOOD COUNT 5.9 10*3/uL (4.8-10.8)
[2024-06-02 08:08] LABS: HBsAG SCREEN Negative (Negative); HEP B CORE Ab, IgM Negative (Negative)
[2024-06-03 22:06] LABS: HCV Ab Reactive (Non Reactive)
== END | disposition home or self-care (01) ==
LOC: LAB 13:14
PROVIDERS: ATTEND Family Medicine
DX: B19.20 Unspecified viral hepatitis C without hepatic coma (principal); Z72.51 High risk heterosexual behavior; Z79.899 Other long term (current) drug therapy

== ENCOUNTER 2024-06-10 11:00 | Emergency (ER) | payer OTHER ==
[~2024-06-10] VITALS: Ht 165.1 cm; Wt 59.0 kg
[2024-06-10] MEDS ORDERED: diazePAM 10 MG/2 ML SYR IV ONE (11:15)
[2024-06-10] MEDS ORDERED: SODIUM CHLORIDE 0.9% 1,000 ML IV ONE (11:15)
[2024-06-10 11:27] LABS: BASO % 0.3 % (0.0-1.0); EOS # 0.1 10*3/uL (0.0-0.4); EOS % 0.5 % (1.0-4.0); MEAN CELL VOLUME 89.4 fl (80.0-94.0); MEAN CORPUSCULAR HGB 30.7 pg (27.0-31.0); MEAN CORPUSCULAR HGB CONC 34.4 g/dl (33.0-37.0); MEAN PLATELET VOLUME 9.8 fl (9.6-12.3); MONO # 0.6 10*3/uL (0.1-1.0); MONO % 6.1 % (3.0-9.0); NEUT # 6.9 10*3/uL (2.3-7.9); NEUT % 69.5 % (47.0-73.0); PLATELET COUNT AUTOMATED 234 10*3/uL (130-400); RED BLOOD COUNT 4.36 10*6/uL (4.50-5.90); RED CELL DISTRI WIDTH 13.3 % (0-14.5); WHITE BLOOD COUNT 9.9 10*3/uL (4.8-10.8)
[2024-06-10 12:05] LABS: URINE AMPHETAMINES Positive (1000ng/ml); URINE BARBITURATES Positive (200ng/ml); URINE BENZODIAZEPINES Negative (200ng/ml); URINE CANNABINOIDS (THC) Negative (50ng/ml); URINE COCAINE Negative (300ng/ml); URINE METHADONE Negative (300ng/ml); URINE OPIATES Negative (300ng/ml); URINE PHENCYCLIDINE Negative (25ng/ml)
[2024-06-10 12:10] LABS: ALKALINE PHOSPHATASE 90 U/L (46-116); BUN 8 mg/dl (9-23); CHLORIDE 101 mmol/L (98-107); CPK 93 U/L (34-171); SGPT/ALT 62 U/L (5-49); TOTAL PROTEIN 8.3 gm/dL (6.0-8.0)
== END 2024-06-10 12:47 | disposition left against medical advice (07) ==
LOC: ED 11:00
PROVIDERS: Nurse Practitioner Family
DX: R51.9 Headache, unspecified (principal); F14.90 Cocaine use, unspecified, uncomplicated; F17.200 Nicotine dependence, unspecified, uncomplicated; Z79.899 Other long term (current) drug therapy; Z90.89 Acquired absence of other organs; Z98.890 Other specified postprocedural states

== ENCOUNTER 2024-06-10 13:12 | Emergency (ER) | payer OTHER | END 2024-06-10 13:59 | disposition left against medical advice (07) | LOC: ED 13:12 | DX: R51.9 Headache, unspecified (principal); Z79.899 Other long term (current) drug therapy; F14.90 Cocaine use, unspecified, uncomplicated; F17.200 Nicotine dependence, unspecified, uncomplicated; Z90.89 Acquired absence of other organs; Z98.890 Other specified postprocedural states ==

== ENCOUNTER → 2024-07-15 | Outpatient (CLI) | payer OTHER ==
[2024-07-15 11:19] LABS: FREE T4 0.9 ng/dl (0.89-1.76)
== END | disposition home or self-care (01) ==
LOC: LAB 10:13
PROVIDERS: ATTEND Family Medicine
DX: E03.9 Hypothyroidism, unspecified (principal); E78.5 Hyperlipidemia, unspecified; K75.9 Inflammatory liver disease, unspecified

== ENCOUNTER → 2024-12-23 | Outpatient (CLI) | payer OTHER ==
[2024-12-23 10:41] LABS: MEAN CELL VOLUME 89.5 fl (80.0-94.0); MEAN CORPUSCULAR HGB 29.8 pg (27.0-31.0); MEAN PLATELET VOLUME 9.0 fl (9.6-12.3); NUCLEATED RED BLOOD CELL 0.0 % (0.0-0.0); NUCLEATED RED BLOOD CELL 0.0 10*3/uL (0.0-0.0); PLATELET COUNT AUTOMATED 179.0 10*3/uL (130-400); RED CELL DISTRI WIDTH 12.9 % (0-14.5)
[2024-12-23 11:33] LABS: BUN 14 mg/dl (9-23); CPK 98 U/L (34-171); FREE T4 1.16 ng/dl (0.89-1.76); LDL CHOLESTEROL 124 mg/dL (9-159); SGPT/ALT 10 U/L (5-49)
[2024-12-24 14:08] LABS: HEPATITIS C QUANTITATION HCV Not Detected IU/mL (.)
== END | disposition home or self-care (01) ==
LOC: LAB 10:22
PROVIDERS: ATTEND Family Medicine
DX: I10 Essential (primary) hypertension (principal); K21.9 Gastro-esophageal reflux disease without esophagitis; E03.9 Hypothyroidism, unspecified; R53.83 Other fatigue